=== PATIENT | female | born 1960 | race Caucasian/White ===

== ENCOUNTER → 2022-09-15 10:05 | Outpatient (BNVA) | payer OTHER, SELFPAY | PROVIDERS: Visit Provider Nurse Practitioner Family | DX: J22 Unspecified acute lower respiratory infection (principal); B96.89 Other specified bacterial agents as the cause of diseases classified elsewhere | CPT/HCPCS: 71046 ==

== ENCOUNTER 2022-09-22 10:25 | Emergency (ER) | payer OTHER, SELFPAY ==
--- NOTE | 2022-09-22 10:27 | XR_ITS ---
WS: [id number] Portable AP upright chest, 09/22/2022 Clinical Data: cp Comparison: Two-view chest, 09/15/2022 Findings: No nodules, masses or effusions are seen. The heart is normal. The pulmonary vascularity is not increased. No pneumonia or pneumothorax is seen. XR/XR chest 1V portable [id number] Impression: Negative chest.
[2022-09-22 11:04] VITALS: BP 137/81; PULSE 66; RESP 18; TEMP 36.6; O2SAT 95
[2022-09-22 12:03] LABS: Basophils % 0.4 %; Eosinophils # 0.1 10^3/uL (0.0-0.8); Eosinophils % 1.4 %; Hematocrit 41.6 % (37.0-47.0); Hemoglobin 13.7 g/dL (11.5-15.3); Lymphocytes # 2.5 10^3/uL (0.8-4.8); Mean Corpuscular HGB Conc 32.9 g/dL (30.0-36.0); Mean Corpuscular Volume 84.9 fl (81-99); Monocytes # 0.5 10^3/uL (0.2-0.9); Monocytes % 6.5 %; Neutrophils # 3.76 10^3/uL (1.8-7.7); Neutrophils % 54.5 %; Nucleated Red Blood Cells % 0 %; Platelet Count 235 10^3/cmm (130-400); Red Cell Distribution Width 12.6 % (12.1-15.1); White Blood Count 6.9 10^3/uL (4.0-10.0)
[2022-09-22 12:29] LABS: Troponin(5th) Baseline 6 ng/L (0-10)
[2022-09-22 12:39] LABS: Alanine Aminotransferase 20 U/L (0-33); Albumin Level 4.1 g/dL (3.5-5.2); Alkaline Phosphatase 117 U/L (35-105); Anion Gap 14.1 (5-19); Aspartate Amino Transferase 18 U/L (0-32); Blood Urea Nitrogen 12 mg/dL (8-23); Calcium 9.5 mg/dL (8.5-10.5); Carbon Dioxide 25 mmol/L (22-29); Chloride 105 mmol/L (98-107); Globulin 2.4 g/dL (1.3-4.6); Glucose 107 mg/dL (65-115); NT Pro B Type Natriuretic Pept 62 pg/mL (0-125); Osmolality Calculated 290 mOsm/kg (285-295); Potassium 4.1 mmol/L (3.5-5.1); Sodium 140 mmol/L (136-145); Total Bilirubin 0.2 mg/dL (0.15-1.2); Total Protein 6.5 g/dL (6.6-8.7)
--- NOTE | 2022-09-22 13:06 | ED_ITS ---
HPI - Chest Pain General: Chief Complaint: Chest Pain Stated Complaint: chest pain Time Seen by Provider: 09/22/22 13:05 History of Present Illness: Ms. Crum is a 62-year-old lady with history of intermittent smoking presenting to the emergency department for chest discomfort and cough. She reports essentially 1 month history of continue respiratory symptoms abdomen worse now for the past week and a half. She was seen by urgent care and diagnosed with pneumonia started on Augmentin. She has had moderate improvement as far as the cough goes however still has aching left anterior chest pain with radiation down the left arm. Intensity symptoms is moderate. Course has persisted. No other specific changes in health, exacerbating, or alleviating factors identified. 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 No pertinent past medical history neghx: htn,dm,dvt/pe PCP: None Surgical History Hx of cholecystectomy (~1996) Hx of dilation and curettage (~1998) of uterus Hx of hand surgery (Unknown) Left hand--fix broken bone Hx of thyroidectomy (~1986) 1/2 thyroid removed Family History Mother Thyroid disease Grandmother No problems noted. Grandfather Thyroid disease Maternal Denies family history of Colon cancer Ovarian cancer Diabetes Heart disease Hypercholesteremia Breast cancer Hypertension Uterine cancer Stroke Physical Exam Const: COMMON NORMALS: alert GENERAL APPEARANCE: cooperative and well dev eloped HENMT: COMMON NORMALS: normocephalic and atraumatic HEAD & SCALP: normocephalic and atraumatic Eye: COMMON NORMALS: conjunctivae normal CONJUNCTIVA: Yes conjunctivae normal SCLERA: sclerae normal Neck/C-Spine: COMMON NORMALS: supple GENERAL: Yes trachea midline Resp: COMMON NORMALS: clear to auscultation bilaterally EFFORT & INSPECTION: Yes able to speak in complete sentences AUSCULTATION: clear to auscultation bilaterally Cardio: COMMON NORMALS: regular rate and regular rhythm RATE: regular rate RHYTHM: regular rhythm GI: COMMON NORMALS: Soft to palpation PALPATION: Yes Soft to palpation and No Tenderness to palpation present (GI) Extremity: GENERAL: Yes normal exam except as noted and No edema Neuro: COMMON NORMALS: moves all extremities SENSORIUM/ORIENTATION: Yes alert and No Orientation impaired Psych: COMMON NORMALS: mental status grossly normal and Normal thought process present THOUGHT PROCESS: Normal thought process present Course Vital Signs: Vital signs: Vital Signs Temperature 97.9 F 09/22/22 11:04 Pulse Rate 73 09/22/22 14:39 Respiratory Rate 18 09/22/22 13:31 Blood Pressure 118/52 09/22/22 14:39 Pulse Oximetry 92 09/22/22 14:39 Oxygen Delivery Me thod 09/22/22 14:39 MDM - Chest Pain Medical Decision Making 62-year-old lady presenting with chest discomfort associated with respiratory symptoms and shortness of breath. Exam as above. Patient is nontoxic. EKG notable for sinus rhythm with normal axis and intervals, no STEMI. Labs with no significant hematologic or metabolic abnormalities to explain symptoms. Negative range 2-hour delta troponin. Chest x-ray with no lobar consolidation or pneumothorax. During ED course patient treated with DuoNeb, steroids, aspirin, Toradol with improvement. Most likely etiology of patient's symptoms is unclear with unspecified chest pain, she is not low risk by heart score. Additional likely atypical infection causing respiratory symptoms. The results of ED evaluation were discussed with the patient including possible disposition options. I discussed risk stratification by heart score and estimated risk of major adverse cardiac events. The patient wishes to proceed with outpatient management. I discussed prescriptions and/or symptomatic cares (if applicable) including appropriate and responsible use, followup plan, and return precautions. The patient verbalized understanding and felt safe for discharge. Medical Records I reviewed the patient's medical records. Lab Data I reviewed the patient's lab results. 09/22/22 11:50 09/22/22 11:50 Radiology Impressions Chest X-Ray 09/22/22 10:27 Impression: Negative chest. Laboratory Results WBC 6.9 10^3/uL (4.0-10.0) 09/22/22 11:50 RBC 4.90 10^6/uL (4.1-5.3) 09/22/22 11:50 Hgb 13.7 g/dL (11.5-15.3) 09/22/22 11:50 Hct 41.6 % (37.0-47.0) 09/22/22 11:50 MCV 84.9 fl (81-99) 09/22/22 11:50 MCH 28.0 pg (28.0-34.0) 09/22/22 11:50 MCHC 32.9 g/dL (30.0-36.0) 09/22/22 11:50 RDW 12.6 % (12.1-15.1) 09/22/22 11:50 Plt Count 235 10^3/cmm (130-400) 09/22/22 11:50 MPV 10.0 fL (7.4-10.4) 09/22/22 11:50 Neut % (Auto) 54.5 % 09/22/22 11:50 Lymph % (Auto) 36.0 % 09/22/22 11:50 Bradford % (Auto) 6.5 % 09/22/22 11:50 Eos % (Auto) 1.4 % 09/22/22 11:50 Baso % (Auto) 0.4 % 09/22/22 11:50 Neut # (Auto) 3.76 10^3/uL (1.8-7.7) 09/22/22 11:50 Lymph # (Auto) 2.5 10^3/uL (0.8-4.8) 09/22/22 11:50 Bradford # (Auto) 0.5 10^3/uL (0.2-0.9) 09/22/22 11:50 Eos # (Auto) 0.1 10^3/uL (0.0-0.8) 09/22/22 11:50 Baso # (Auto) 0.0 10^3/uL (0.0-0.1) 09/22/22 11:50 Nucleated RBC % (auto) 0 % 09/22/22 11:50 Nucleated RBCs # 0.0 /100WBC 09/22/22 11:50 D-Dimer 0.32 ug/mIFEU (0-0.59) 09/22/22 11:50 Sodium 140 mmol/L (136-145) 09/22/22 11:50 Potassium 4.1 mmol/L (3.5-5.1) 09/22/22 11:50 Chloride 105 mmol/L (98-107) 09/22/22 11:50 Carbon Dioxide 25 mmol/L (22-29) 09/22/22 11:50 Anion Gap 14.1 (5-19) 09/22/22 11:50 BUN 12 mg/dL (8-23) 09/22/22 11:50 Creatinine 0.6 mg/dL (0.5-0.9) 09/22/22 11:50 GFR Calculation 101.0 mL/min (90-130) 09/22/22 11:50 Glucose 107 mg/dL (65-115) 09/22/22 11:50 Calculated Osmolality 290 mOsm/kg (285-295) 09/22/22 11:50 Calcium 9.5 mg/dL (8.5-10.5) 09/22/22 11:50 Total Bilirubin 0.2 mg/dL (0.15-1.2) 09/22/22 11:50 AST 18 U/L (0-32) 09/22/22 11:50 ALT 20 U/L (0-33) 09/22/22 11:50 Alkaline Phosphatase 117 U/L (35-105) H 09/22/22 11:50 Troponin T Baseline 6 ng/L (0-10) 09/22/22 11:50 Troponin T 120 Minute 6.00 ng/L (0-10) 09/22/22 14:07 Delta Troponin T 0 ABS# (0-10) 09/22/22 14:07 NT-Pro-B Natriuret Pep 62 pg/mL (0-125) 09/22/22 11:50 Total Protein 6.5 g/dL (6.6-8.7) L 09/22/22 11:50 Albumin 4.1 g/dL (3.5-5.2) 09/22/22 11:50 Globulin 2.4 g/dL (1.3-4.6) 09/22/22 11:50 Discharge Plan Discharge Patient Disposition: Home Clinical Impression: Chest pain, Cough Condition: Stable Prescriptions: New albuterol sulfate 90 mcg/actuation HFA aerosol inhaler 2 inh inhalation Q4H PRN (Reason: shortness of breath or wheezing) Qty: 8.5 0RF No Action thyroid (pork) [Naselle Thyroid] 120 mg tablet 105 mg PO DAILY B Complex Plus Vitamin C 27-82-22-5-300 mg capsule 1 cap PO DAILY Rx Instructions: give with food (meal/snack) ascorbate calcium (vitamin C) 500 mg tablet 500 mg PO DAILY biotin 10,000 mcg capsule PO iodine (kelp) Tablet PO amoxicillin-pot clavulanate 875-125 mg tablet 1 tab PO BID Qty: 20 0RF fluconazole [Diflucan] 150 mg tablet 150 mg PO DAILY Qty: 2 0RF Rx Instructions: Take 1 tablet on day 1 and the second tablet 3 days later. fluticasone propionate [Flonase Allergy Relief] 50 mcg/actuation spray,suspension 2 spray intranasal DAILY Qty: 16 0RF Rx Instructions: administer into each nostril Discharge Orders: Discharge ED (Routine); Ordered 09/22/22 Ordered By: Gil Ling Discharge Diet: Usual diet Discharge Activity: Resume usual activity Patient Instructions: Chest Pain (ED), Acute Cough (ED) Activity Restrictions/Additional Instructions: Thank you for visiting the emergency department. You were seen and evaluated for chest pain and cough. The exact cause of your symptoms is unclear as discus sed. You are not low risk for adverse cardiac events and I will message case management for follow-up. I will prescribe steroids and you should continue your antibiotics. Please also use the albuterol metered-dose inhaler 2 puffs every 4 hours for 24 hours followed by 2 puffs every 6 hours for 24 hours followed by 2 puffs every 8 hours for 24 hours and then return to the normal schedule. You may use [id number] medications such as acetaminophen and ibuprofen for pain however please do not exceed the daily recommended dosage as listed on the packaging and please keep in mind that many namebrand medications contain the same active ingredients. Please avoid these medications if previously instructed to do so by another physician due to other underlying medical condition. Return to the emergency department for worsening symptoms or anything else that you are concerned about and feel needs emergency department evaluation. Coding Level of Care Code ED Train Operations Manager for Lory Bagley
[2022-09-22] MEDS: aspirin 81 mg Chew Tablet 324 MG PO (13:23)
[2022-09-22] MEDS: ketorolac 30 mg/mL INJ 15 MG IVP (13:28)
[2022-09-22] MEDS: ipratropium-albuterol 3 mL Neb INHALATION (13:28)
[2022-09-22 13:31] VITALS: PULSE 64; RESP 18; O2SAT 96
--- NOTE | 2022-09-22 13:39 | ECG_ITS ---
[facility] Test Date: 2022-09-22 Pat Name: Venecia Crum Department: Room: Gender: Female Roll Skinner: : 1960 Requested By: Boubacar Griffith Order Number: [id number] Herring MD: Elke Roberts M.D. Measurements Intervals [place] Rate: 64 P: 73 AL: 160 QRS: 28 QRSD: 101 T: 56 QT: 436 QTc: 452 Interpretive Statements SINUS RHYTHM POSSIBLE LEFT ATRIAL ENLARGEMENT [-0.1mV P-WAVE IN V1/V2] POSSIBLE RIGHT VENTRICULAR CONDUCTION DELAY [RSR (QR) IN V1/V2] No previous ECG available for comparison Electronically Signed On 09-22-2022 23:54:07 HEARING EXAMINER by Elke Roberts M.D. [id number]
[2022-09-22 14:23] LABS: D Dimer 0.32 ug/mIFEU (0-0.59)
[2022-09-22 14:39] VITALS: BP 118/52; PULSE 73; O2SAT 92
[2022-09-22 14:49] LABS: Troponin 5 2HR Delta 0 ABS# (0-10)
--- NOTE | 2022-09-23 10:27 | DCPLANNER ---
Addendum entered by Susan Bernard 11/16/22 11:22: Patient had an outpatient stress test - patient did attend appointment Addendum entered by Susan Bernard 10/27/22 08:21: Patient has an outpatient stress test scheduled for Monday, November 14, 2022 at 9:00. Original Note: warranty manager had message to schedule an outpatient stress test. warranty manager faxed signed order to centralized scheduling, who will call patient with appointment information.
--- NOTE | 2022-09-23 10:28 | DCPLANNER ---
strategic partner development manager called patient due to no primary care physician. Patient stated that she has an appointment scheduled with Tequila Carrera at the [facility] in [facility] to establish care.
== END 2022-09-22 15:23 | disposition home or self-care (01) ==
PROVIDERS: Physician Assistant; Emergency Provider Emergency Medicine
DX: R07.9 Chest pain, unspecified (principal); R05.9 Cough, unspecified
CPT/HCPCS: 36415; 71045; 80053; 83880; 84484; 85025; 85378; 93005; 94640; 96374; 96375; 99285; J1885; J2930

== ENCOUNTER 2023-02-05 05:20 | Emergency (ER) | payer OTHER, SELFPAY ==
[2023-02-05 05:33] VITALS: BP 179/105; PULSE 76; RESP 18; TEMP 36.6; O2SAT 97; BMI 33.4
--- NOTE | 2023-02-05 05:40 | ED_ITS ---
HPI - Allergic Reaction General: Chief complaint: Allergic Reaction Stated complaint: hives/rash Time Seen by Provider: 02/05/23 05:22 Source: patient Mode of arrival: ambulatory Limitations: no limitations History of Present Illness: HPI narrative: 62-year-old female states she has had hives for the last 4 days. She denies any shortness of breath she is in no distress she states that she has not seen a clinic 2 days ago started on prednisone 30 mg states the hives not improved any she has taken some Benadryl at home. 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 No pertinent past medical history neghx: htn,dm,dvt/pe PCP: None Surgical History Hx of cholecystectomy (~1996) Hx of dilation and curettage (~1998) of uterus Hx of hand surgery (Unknown) Left hand--fix broken bone Hx of thyroidectomy (~1986) 1/2 thyroid removed Family History Mother Thyroid disease Grandmother No problems noted. Grandfather Thyroid disease Maternal Denies family history of Colon cancer Ovarian cancer Diabetes Heart disease Hypercholesteremia Breast cancer Hypertension Uterine cancer Stroke Physical Exam Const: COMMON NORMALS: no acute distress, patient oriented x3 and healthy appearing HENMT: COMMON NORMALS: normocephalic and atraumatic HEAD & SCALP: normocephalic and atraumatic Eye: COMMON NORMALS: conjunctivae normal CONJUNCTIVA: Yes conjunctivae normal Neck/C-Spine: COMMON NORMALS: supple Chest: COMMONS NORMALS: normal inspection of the chest and normal palpation of entire chest wall Resp: COMMON NORMALS: normal respiratory effort, No retractions, No use of accessory muscles and clear to auscultation bilaterally AUSCULTATION: clear to auscultation bilaterally Cardio: COMMON NORMALS: regular rate, regular rhythm and No murmurs present (Cardio) RATE: regular rate RHYTHM: regular rhythm GI: COMMON NORMALS: Soft to palpation, non-tender and no masses PALPATION: Yes Soft to palpation Extremity: COMMON NORMALS: full ROM Neuro: COMMON NORMALS: patient oriented x3, moves all extremities and no focal motor deficits Psych: COMMON NORMALS: mental status grossly normal, Normal thought process present and cooperative THOUGHT PROCESS: Normal thought process present Skin: COMMON NORMALS: no wounds NARRATIVE SKIN EXAM: Urticarial rash to trunk and arms Course Vital Signs: Vital signs: Vital Signs Temperature 98 F 02/05/23 05:33 Pulse Rate 76 02/05/23 05:33 Respiratory Rate 18 02/05/23 05:33 Blood Pressure 179/105 02/05/23 05:33 Pulse Oximetry 97 02/05/23 05:33 MDM - Allergic Reaction Medical Decision Making Patient presents here with urticaria to her trunk and arms did give her prednisone 60 mg here along with Pepcid. Patient is to take 60 mg of her prednisone tomorrow and the next day she is to follow-up with PCP and return if worsening she has no shortness of breath no signs of anaphylaxis. Medical Records I reviewed the patient's medical records. Discharge Plan Discharge Patient Disposition: Home Clinical Impression: Urticaria Condition: Stable Prescriptions: New famotidine [Pepcid] 40 mg tablet 40 mg PO BID Qty: 20 0RF No Action thyroid (pork) [Clyde Thyroid] 120 mg tablet 105 mg PO DAILY B Complex Plus Vitamin C 03-81-73-5-300 mg capsule 1 cap PO DAILY Rx Instructions: give with food (meal/snack) ascorbate calcium (vitamin C) 500 mg tablet 500 mg PO DAILY biotin 10,000 mcg capsule PO iodine (kelp) Tablet PO prednisone 10 mg tablet 30 mg PO DAILY 5 Days Qty: 15 0RF Rx Instructions: start this medicine on Monday albuterol sulfate 90 mcg/actuation HFA aerosol inhaler 2 inh inhalation Q4H PRN (Reason: shortness of breath or wheezing) Qty: 8.5 0RF Discharge Orders: Discharge ED (Routine); Ordered 02/05/23 Ordered By: Eloisa Wynn Referrals: Tequila Carrera NP [Primary Care Provider] - 1-3 days Discharge Diet: Advance as tolerated Discharge Activity: Resume usual activity Patient Instructions: Urticaria (ED) Activity Restrictions/Additional Instructions: take 60mg prednisone tomorrow and next day Coding Level of Care Code ED Mining Technician for Lory Bagley
[2023-02-05] MEDS: famotidine 20 mg Tablet 40 MG PO (05:47)
[2023-02-05] MEDS: predniSONE 20 mg Tablet 60 MG PO (05:47)
[2023-02-05 05:48] VITALS: BP 155/86; PULSE 67; RESP 16; O2SAT 97
== END 2023-02-05 05:53 | disposition home or self-care (01) ==
PROVIDERS: Emergency Provider Emergency Medicine; PCP Nurse Practitioner
DX: L50.9 Urticaria, unspecified (principal)
CPT/HCPCS: 99283; J7512